=== PATIENT | female | born 2000 | race Caucasian/White ===

== ENCOUNTER → 2018-12-01 | Outpatient (CLI) | payer BC ==
--- NOTE | 2018-12-14 12:56 | SP ---
DATE OF PROCEDURE: 12/01/2018 INDICATION: This is an outpatient EEG study for 18-year-old lady with an evaluation of possible star ing episodes. No medications. DESCRIPTION OF PROCEDURE: Routine EEG was recorded digitally on 12/01/2018. All impedances were candy sured and recorded. [id number] and [id number]-fm-[id number] montages were recorded and reviewed. Cap electr odes were placed in accordance to International 10-20 system of electrode placement. FINDINGS: Symmetrically distributed background activity of low to medium amplitude ranging in freque ncy in the awake state between 9 to 11 cycles per second. This activity attenuates with eye opening. Photic stimulation produces normal driving. Hyperventilation elicits no epileptiform activity. Wh en patient gets drowsy and falls asleep, background gets less organized, slows down 4 to 6 cycles per second and occasional vertex waves were seen. No epileptiform transients were seen. No signs of on going electrographic seizures or lateralized slowing. IMPRESSION: Normal study. Please correlate clinically. Dictated By: MARS SAVAGE/LILA Conf#: [id number] DID#: [id number]
== END | disposition home or self-care (01) ==
LOC: EEG 11:54
PROVIDERS: ATTEND Family Medicine Adult Medicine
DX: R56.9 Unspecified convulsions (principal)
CPT/HCPCS: 95819